=== PATIENT | female | born 1975 | race African-American/Black ===

== ENCOUNTER 2017-08-06 23:25 | Emergency (ER) | payer OTHER ==
[~2017-08-06] VITALS: Ht 177.8 cm; Wt 152.5 kg
[2017-08-06] MEDS ORDERED: VIT B (23:32)
[2017-08-06] MEDS ORDERED: IRON PILL (23:32)
[2017-08-06] MEDS ORDERED: LISI-167 PO (23:32)
[2017-08-07] MEDS ORDERED: HYDROcodone/APAP 5/325 TABLET ONE (00:40)
[2017-08-07] MEDS ORDERED: HYDROcodone/APAP 5/325 TABLET PO ONE (01:00)
[2017-08-07 01:15] VITALS: BP 149/88
== END 2017-08-07 01:17 | disposition home or self-care (01) ==
LOC: ED 08-07 01:11
DX: S93.422A Sprain of deltoid ligament of left ankle, initial encounter (principal); W00.0XXA Fall on same level due to ice and snow, initial encounter; Y93.89 Activity, other specified; Y92.098 Other place in other non-institutional residence as the place of occurrence of the external cause; Y99.8 Other external cause status
CPT/HCPCS: 99284